=== PATIENT | male | born 1990 | race Caucasian/White ===

== ENCOUNTER 2017-04-19 10:49 | Emergency (ER) | payer MEDICAID ==
[~2017-04-19] VITALS: Ht 160 cm; Wt 45.0 kg
[2017-04-19 10:59] VITALS: Ht 160 cm; Wt 45.0 kg
[2017-04-19] MEDS ORDERED: BEN25 PO (11:32)
[2017-04-19] MEDS ORDERED: TRAZ100T15 PO (11:32)
--- NOTE | 2017-04-19 11:35 | ERD ---
ER Documentation Chief Complaint Date/Time DATE: 04/19/17 TIME: 11:33 Chief Complaint Complains of an anxiety reaction HPI 26-year-old male presents with the family. He has a history of developmental delay and cerebral palsy. Recently moved from [place]. He is being brought for occasional episodes of agitation usually in public places. Were he becomes agitated and scratches. Is acting appropriately currently. Is taking trazodone the past with possible beneficial relief. There attending to get into local [facility] but are having some transfer of insurance issues. There is no history of self injury, homicidal or suicidal behavior. ROS All systems reviewed and are negative except as per history of present illness. Medications Home Meds Active Scripts Trazodone Hcl* (Trazodone Hcl*) 100 Mg Tablet, 100 MG PO QHS, #30 TAB Prov:KENNY REAL MD 04/19/17 Diphenhydramine Hcl* (Benadryl*) 25 Mg Cap, 25 MG PO Q6, #20 CAP Prov:KENNY REAL MD 04/19/17 Allergies Allergies: Coded Allergies: No Known Allergy (Unverified , 04/19/17) PMhx/Soc Hx Alcohol Use: No Hx Substance Use: No Hx Tobacco Use: No Smoking Status: Never smoker Physical Exam Vitals Vital Signs Date Time Temp Pulse Resp B/P Pulse Ox O2 Delivery O2 Flow Rate FiO2 04/19/17 10:59 99.4 110 20 166/76 98 Physical Exam Const: [] Alert, no apparent distress. Head: Atraumatic Eyes: Normal Conjunctiva ENT: Normal External Ears, Nose and Mouth. Neck: Full range of motion..~ No meningismus. Resp: Clear to auscultation bilaterally Cardio: Regular rate and rhythm, no murmurs Abd: Soft, non tender, non distended. Normal bowel sounds Skin: No petechiae or rashes Back: No midline or flank tenderness Ext: No cyanosis, or edema Neur: Awake and alert Psych: Baseline delayed affect no acute agitation, homicidal or suicidal behavior Procedures/MDM Patient presents with developmental delay. Is under the care of his sister who is his chrome tanning drum operator. There is no signs or symptoms of acute agitation or emergent signs or symptoms. We will initiate retreatment with trazodone and Benadryl for agitation and reinforcement to follow-up with [facility] for further evaluation and management. There is no signs or symptoms of grave disability, danger to self or danger to others currently. The patient was stable with no new complaints during the ER course. Clinically, there is no current evidence to suggest meningitis, sepsis, acute abdomen, pneumonia, acute coronary syndrome, pulmonary embolism, or any other emergent condition appearing to require further evaluation or hospitalization. The patient should certainly return for any new or worsening symptoms per the aftercare instructions. They should otherwise follow-up with her primary care doctor for reevaluation this week. Departure Diagnosis: Primary Impression: Agitation Condition: Stable Patient Instructions: Your Body's Response to Anxiety Referrals: [facility] Usted se salvador hecho un examen mdico de control que le indica que no est en silvestre condicin que requiera tratamiento urgente en el Departamento de Emergencia. Un estudio ms profundo y el tratamiento de cox condicin pueden esperar sin ningn riesgo hasta que usted sea atendida/o en el consultorio de cox mdico o silvestre cl justo. Es responsabilidad suya arreglar silvestre gerladine para el seguimiento del parker. MANEJO DE CONDICIONES NO URGENTES EN EL FUTURO 1) Si usted tiene un mdico de atencin primaria: Usted debera llamar a cox mdico de atencin primaria antes de venir al departamento de emergencia. Despus de las horas de consultorio, cox doctor o cox asociado/a est disponible por telfono. El mdico o enfermero de ree en el servicio telefnico puede asesorarle por brandon medio para atender el problema, o parker contrario se puede programar silvestre geraldine. 2) Si usted no tiene un mdico de atencin primaria: Llame al mdico o clnica de referencia que aparece abajo jose j las horas de consultorio para hacer silvestre geraldine para que le vean. CLINICAS: [facility] [phone] [facility] [phone] [facility]. [facility] [phone] [facility] [phone] [facility] [phone] [address] [facility] [phone] [address] Additional Instructions: Recommend primary care for further evaluation and referral. Recheck otherwise for new or worsening symptoms. KENNY REAL MD Apr 19, 2017 11:35
== END 2017-04-19 12:28 | disposition home or self-care (01) ==
LOC: FTE 10:49
DX: R45.1 Restlessness and agitation (principal)
CPT/HCPCS: 99283